=== PATIENT | female | born 1950 | race Caucasian/White ===

== ENCOUNTER → 2019-04-01 | Outpatient (CLI) | payer MEDICARE ==
[2019-04-01 11:26] LABS: Anisocytosis Slight; Basophils # (A) 0.1 k/uL (0-0.2); Basophils % (A) 1 %; Eosinophils # (A) 0.2 k/uL (0-0.7); Eosinophils % (A) 3 %; HCT 42.7 % (34.0-46.0); HGB 13.3 gm/dL (11.4-16.0); Hypochromasia Moderate; Lymphocytes # (A) 2.2 k/uL (1.0-4.8); Lymphocytes % (A) 27 %; MCH 25.9 pg (25.0-35.0); MCHC 31.1 g/dL (31.0-37.0); MCV 83.3 fL (80.0-100.0); Mean Platelet Volume 6.6; Monocytes # (A) 0.4 k/uL (0-1.0); Monocytes % (A) 5 %; Neutrophils % (A) 61 %; Platelet Count 242 k/uL (150-450); RBC 5.13 m/uL (3.80-5.40); RDW 16.7 % (11.5-15.5); WBC 8.2 k/uL (3.8-10.6)
[2019-04-01 16:46] LABS: African American GFR (CKD) 76.1 (60.0-200.0); Albumin 4.2 g/dL (3.80-4.90); Albumin/Globulin Ratio 1.83 (1.60-3.17); Anion Gap 8.4 mmol/L (4.00-12.00); BUN/Creat Ratio 25.56 Ratio (12.00-20.00); Calcium 9.6 mg/dL (8.7-10.3); Carbon Dioxide 26.6 mmol/L (21.6-31.8); Globulin 2.3 g/dL (1.6-3.3); Potassium 5.3 mmol/L (3.5-5.5); Total Bilirubin 0.4 mg/dL (0.3-1.2); Total Protein 6.5 g/dL (6.2-8.2)
== END | disposition home or self-care (01) ==
LOC: LABWHC1 10:17
PROVIDERS: ATTEND Thoracic Surgery (Cardiothoracic Vascular Surgery)
DX: E11.628 Type 2 diabetes mellitus with other skin complications (principal); L97.514 Non-pressure chronic ulcer of other part of right foot with necrosis of bone
CPT/HCPCS: 36415; 80053; 84134; 85025

== ENCOUNTER → 2019-04-06 | Outpatient (CLI) | payer MEDICARE ==
--- NOTE | 2019-04-09 11:55 | P.ARTDOP ---
Arterial Doppler LOWER EXTREMITY ARTERIAL DOPPLER: DATE OF SERVICE: 04/16/2019 Reason for study: Right great toe ulcer. Doppler waveforms: Multiphasic bilaterally throughout. Pulse volume recording: []. Pressure gradients: None. Ankle-brachial indices: Greater than 1 bilaterally. Toe pressures: 98 on the right, 102 on the left Impression: Normal study.
== END | disposition home or self-care (01) ==
LOC: RADUSWWP 12:55
PROVIDERS: ATTEND Thoracic Surgery (Cardiothoracic Vascular Surgery)
DX: E11.628 Type 2 diabetes mellitus with other skin complications (principal); L97.514 Non-pressure chronic ulcer of other part of right foot with necrosis of bone
CPT/HCPCS: 93923

== ENCOUNTER → 2019-07-07 | Outpatient (CLI) | payer MEDICARE ==
--- NOTE | 2019-07-07 13:07 | NM ---
EXAMINATION TYPE: NM bone 3 phase DATE OF EXAM: 07/07/2019 COMPARISON: NONE HISTORY: Right foot nonhealing ulcer Triple phase bone scintigraphy was performed following the injection of 24.1 mCi Tc 99m MDP. Immedia te images and 4.5 hours post injection images acquired. FINDINGS: There is fairly symmetric flow to the feet bilaterally. Increased soft tissue uptake is seen involvin g the distal margins of both feet. Delayed imaging does demonstrate increased uptake involving the di stal phalanx of the first digit. IMPRESSION: Correlate for cellulitis with osteomyelitis distal phalanx first digit.
== END ==
LOC: RADNMMAIN 07:16
PROVIDERS: ATTEND Family Medicine
DX: E11.621 Type 2 diabetes mellitus with foot ulcer (principal); L97.512 Non-pressure chronic ulcer of other part of right foot with fat layer exposed
CPT/HCPCS: 78315; A9503

== ENCOUNTER → 2020-03-28 | Outpatient (CLI) | payer MEDICARE ==
[2020-03-28 13:53] VITALS: BP 109/69; PULSE 69; RESP 16; TEMP 97.8
--- NOTE | 2020-03-28 15:02 | P.PAINCN ---
History of Present Illness - Reason for Consult Consult date: 03/28/20 - History of Present Illness This is 60 years old female with a chronic history of severe right foot pain, the pain started 1 year ago, patient had history of wound infection in her right foot and she was treated with antibiotics for long-term, and after the treatment she continues to have severe localized in the right big toe, and radiated to the right foot, the pain is constant continuous she is not able to use her right foot because of severe numbness and tingling and pain, currently she had very small open wound and the base of her right big toe, currently she does not have any swelling or discharge or erythema. Patient tried physical therapy TENS unit and multiple medication without any significant benefit, Past Medical History Past Medical History: Coronary Artery Disease (CAD), Heart Failure, Diabetes Mellitus, Hypertension, Osteoarthritis (OA) Additional Past Medical History / Comment(s): PHLEBITIS, NEUROPATHY, NUMBNESS/PARASTHESIAS, DROP-FOOT (RIGHT), RIGHT TOE WOUND/HX OF STAPH INFECTION History of Any Multi-Drug Resistant Organisms: None Reported Past Surgical History: Back Surgery, Cholecystectomy, Heart Catheterization With Stent, Hysterectomy, Orthopedic Surgery, Tonsillectomy Additional Past Surgical History / Comment(s): CATARACT, HEART STENT, BACK SURGERY X 5, RIGHT KNEE Past Anesthesia/Blood Transfusion Reactions: No Reported Reaction Date of Last Stent Placement:: 04-21-2014 Past Psychological History: Depression Smoking Status: Former smoker Medications and Allergies Home Medications Medication Instructions Recorded Confirmed Type Alendronate Sodium 70 mg PO DAILY 03/28/20 03/28/20 History Amitriptyline HCl 25 mg PO HS 03/28/20 03/28/20 History Aspirin [Adult Low Dose Aspirin EC] 81 mg PO DAILY 03/28/20 03/28/20 History Atorvastatin [Lipitor] 20 mg PO HS 03/28/20 03/28/20 History Cholecalciferol [Vitamin D3 (25 2,000 unit PO DAILY 03/28/20 03/28/20 History Mcg = 1000 Iu)] Doxycycline Hyclate 100 mg PO BID 03/28/20 03/28/20 History Enalapril Maleate [Vasotec] 20 mg PO DAILY 03/28/20 03/28/20 History Furosemide [Lasix] 20 mg PO DAILY 03/28/20 03/28/20 History Ibuprofen 800 mg PO Q8H 03/28/20 03/28/20 History Loratadine 10 mg PO DAILY 03/28/20 03/28/20 History Metoprolol Succinate (ER) [Toprol 100 mg PO DAILY 03/28/20 03/28/20 History XL] Multivitamin/Iron/Folic Acid 1 each PO DAILY 03/28/20 03/28/20 History [Centrum Women Tablet] Naproxen 500 mg PO ONCE 03/28/20 03/28/20 History Omeprazole [PriLOSEC] 40 mg PO DAILY 03/28/20 03/28/20 History Pregabalin [Lyrica] 200 mg PO BID 03/28/20 03/28/20 History Temazepam [Restoril] 15 mg PO HS PRN 03/28/20 03/28/20 History Zafirlukast 20 mg PO BID 03/28/20 03/28/20 History buPROPion HCL [buPROPion HCL SR] 150 mg PO BID 03/28/20 03/28/20 History glipiZIDE [Glucotrol] 10 mg PO DAILY 03/28/20 03/28/20 History hydrALAZINE HCL [Apresoline] 50 mg PO BID 03/28/20 03/28/20 History Allergies Allergy/AdvReac Type Severity Reaction Status Date / Time Penicillins Allergy Anaphylaxis Verified 03/28/20 13:27 Sulfa (Sulfonamide Allergy Anaphylaxis Verified 03/28/20 13:27 Antibiotics) Physical Exam Vitals: Vital Signs Temp Pulse Resp BP Pulse Ox 03/28/20 13:31 97.8 F 69 16 109/69 96 Intake and Output 03/27/20 03/28/20 03/28/20 22:59 06:59 14:59 Other: Weight 113.398 kg Physical Examinations : -Constitutiona : Cooperative , not in acute distress . -HEENT : nech : supple , no Lymphadenopathy , normal thyroid size . : eyes : no ptosis , no icterus, no photophobia . - neurologic : Cranial nerve II to XII intact , no focal neurological deffecit . -psychatric : alert , oriented X 3 , appropriate affect , intact judgment and insight . -Lymphatic : no Lymphadenopathy . - musculoskeltal : . Lumber spine moter stegnth lower extremities ,thigh and legs 5/5 Right side , 5/5 Left side Right foot=+ allodynia at the dorsum of the right foot, no swelling There is less than a half an inch from the wound at the right big Toe ( covered with Band-Aid ) Positive dysesthesia of the dorsum of the right foot Assessment and Plan Plan: Assessment and plan=1-complex regional pain syndrome type I right lower extremity Patient could benefit from right side lumbar sympathetic block under fluoroscopy guidance Time with Patient: Greater than 30 PQRS Measure Charge Sheet Measure #130: Documentation of Current Meds in Medical Chart: Patient's medications documented in chart Measure #226: Tobacco Use: Screen & Cessation Intervention: Pt not a tobacco user Measure #111: Pneumonia Vaccination: Pneumococcal vaccine administered or previously received Measure #47: Advance Care Plan: Advance care planning discussed & documented, pt chose/unable to give Measure #412: Opioid Treatment Agreement: No documentation of signed opioid treatment agreement Measure #408: Opioid Therapy Follow-up Evaluation: Patient had NO f/u eval minimum every 3 months during opioid therapy Measure #317: Preventitive Care & Scrn High Bld Press & F/U: Normal blood pressure, f/u not required Measure #128: Body Mass Index (BMI) Screening & Follow-up: BMI documented ABOVE normal parameters - f/u documented Measure #131: Pain Assessment & Follow-up: Pain positive & plan documented, Follow-up scheduled Measure #431: Unhealthy Alcohol Use Preventative Care & Scrn: Patient not identified as an unhealthy alcohol user PQRS Narrative: Blood Pressure 109/69 Pain Intensity [Right Toe] 7 Hx Alcohol Use (MH) Yes: SOCIAL Home Medications: Ambulatory Orders Alendronate Sodium 70 mg PO DAILY 03/28/20 Amitriptyline HCl 25 mg PO HS 03/28/20 Aspirin [Adult Low Dose Aspirin EC] 81 mg PO DAILY 03/28/20 Atorvastatin [Lipitor] 20 mg PO HS 03/28/20 Cholecalciferol [Vitamin D3 (25 Mcg = 1000 Iu)] 2,000 unit PO DAILY 03/28/20 Doxycycline Hyclate 100 mg PO BID 03/28/20 Enalapril Maleate [Vasotec] 20 mg PO DAILY 03/28/20 Furosemide [Lasix] 20 mg PO DAILY 03/28/20 Ibuprofen 800 mg PO Q8H 03/28/20 Loratadine 10 mg PO DAILY 03/28/20 Metoprolol Succinate (ER) [Toprol XL] 100 mg PO DAILY 03/28/20 Multivitamin/Iron/Folic Acid [Centrum Women Tablet] 1 each PO DAILY 03/28/20 Naproxen 500 mg PO ONCE 03/28/20 Omeprazole [PriLOSEC] 40 mg PO DAILY 03/28/20 Pregabalin [Lyrica] 200 mg PO BID 03/28/20 Temazepam [Restoril] 15 mg PO HS PRN 03/28/20 Zafirlukast 20 mg PO BID 03/28/20 buPROPion HCL [buPROPion HCL SR] 150 mg PO BID 03/28/20 glipiZIDE [Glucotrol] 10 mg PO DAILY 03/28/20 hydrALAZINE HCL [Apresoline] 50 mg PO BID 03/28/20
== END | disposition home or self-care (01) ==
LOC: PNWHC3 13:15
PROVIDERS: ATTEND Specialist
DX: G90.521 Complex regional pain syndrome I of right lower limb (principal); Z79.82 Long term (current) use of aspirin; Z79.1 Long term (current) use of non-steroidal anti-inflammatories (NSAID); Z79.84 Long term (current) use of oral hypoglycemic drugs; Z79.899 Other long term (current) drug therapy; Z88.0 Allergy status to penicillin; Z88.2 Allergy status to sulfonamides
CPT/HCPCS: 99211

== ENCOUNTER 2020-04-19 09:41 | Day surgery (SDC) | payer MEDICARE ==
[2020-04-18 09:21] VITALS: BMI 50.1
[2020-04-19 10:09] VITALS: TEMP 97
[2020-04-19] MEDS ORDERED: LACTATED RINGERS 1,000 ML IV ONE (10:13)
[2020-04-19] MEDS ORDERED: LIDOCAINE 1% (10MG/ML) FOR IV START INTRADERMA ONE (10:13)
[2020-04-19 10:14] LABS: Glucose,Whole Blood 105 mg/dL (75-99)
[2020-04-19] MEDS ORDERED: DEXAMETHASONE SOD PHOSPHATE 10 MG/ML 1 ML VIAL ONE (10:14)
[2020-04-19] MEDS ORDERED: ROPIVACAINE 5MG/ML 20ML VIAL ONE (10:14)
[2020-04-19] MEDS ORDERED: LACTATED RINGERS 1,000 ML IV SCH (10:14)
[2020-04-19] MEDS ORDERED: IOPAMIDOL M200 10 ML VIAL ONE (10:14)
[2020-04-19] MEDS ORDERED: MIDAZOLAM 2 MG/2 ML VIAL ONE (10:14)
[2020-04-19] MEDS ORDERED: fentaNYL (PF) 50 MCG/ML 2 ML AMP ONE (10:14)
[2020-04-19] MEDS ORDERED: LIDOCAINE 1% INJ 10MG/ML (20 ML MDV) ONE (10:14)
--- NOTE | 2020-04-19 10:47 | P.PCN ---
Description of Procedure: PROCEDURE NOTE: Lumbar Sympathetic Block PROCEDURE DATE: 04/19/20 ATTENDING PHYSICIAN: Nino Kevin MD PREOPERATIVE DIAGNOSIS: CRPS right foot POSTOPERATIVE DIAGNOSIS: same PROCEDURE PERFORMED: Right Lumbar Sympathetic Block, at the Level of L3, With Fluoroscopic Guidance ESTIMATED BLOOD LOSS: None FLUIDS: 250mL, 0.9% Sodium Chloride FLUOROSCOPY WAS USED. TOTAL SEDATION TIME: minutes. INDICATIONS FOR PROCEDURE: Patient symptoms consistent with a clinical picture consistent with complex regional pain syndrome of the right lower extremity PROCEDURE AND FINDINGS: Patient was greeted in the pre procedure holding area. The risks, benefits and alternatives to the procedure were again reviewed with the patient and written informed consent was placed in the chart. The patient was confirmed to be NPO, and to have an accompanying adult truck driver flatbed. Prior to the procedure a time out was completed, verifying correct patient, procedure, site, positioning, and implants and/or special equipment. Patient was taken to the procedure room and positioned prone on the fluoroscopy table. Routine monitors were applied including EKG leads, blood pressure cuff, and pulse oximetry. Then an AP view barrel filler film was taken to identify the L3 vertebral body. The skin was prepped with chlorhexidine and draped in the usual sterile fashion. The skin and subcutaneous tissue overlying the target at the L3 level were anesthetized using a 25-gauge 1.5-inch needle with 1% preservative- free lidocaine for a total volume of 3mL. Ipsilateral oblique fluoroscopic view was utiilized to bring the right L3 transverse process into the plane of the right L3. Then a 22-gauge 5-inch Quincke spinal needle was advanced obliquely under fluoroscopic guidance in this ipsilateral oblique view to the right anterolateral margin of the L3 vertebral body A lateral fluoroscopic view was obtained and the needle position was confirmed to be outside the foramen and near the anterior surface of the [id number] body. After negative aspiration,1 mls of iohexol 240 mg/ml contrast was injected under live AP and lateral fluoroscopic views; no vascular run off was identified and the contrast spread was adequate. At this point, after negative aspiration, a 15mL total volume of injectate, consisting of 14mL of 0.5% Ropivacaine and 1mL of 10 mg/mL dexamethasone was injected, in 5mL increments at 2 minute intervals between increments, to observe for complications of intravascular injection. The needle was then flushed with 1 ml of contrst, restyletted and removed. The needle was restyletted and removed. Needle sites were cleaned and dressed appropriately. Patient was taken to the recovery room where they were monitored for a brief period of time. Patient tolerated the procedure well and were discharged home in stable condition with post procedural instructions.
[2020-04-19 11:15] VITALS: BP 107/65; PULSE 62; RESP 16
[2020-04-19] MEDS ORDERED: IV FLUID CONTINUATION 1,000 ML IV ONE (11:18)
--- NOTE | 2020-04-19 16:32 | FL ---
Fluoroscopy INDICATION: Pain FINDINGS: Fluoroscopy time: 1.11 minutes Images obtained: 1. IMPRESSIONS: 1. Documentation of fluoroscopy.
== END 2020-04-19 11:44 | disposition home or self-care (01) ==
LOC: ORPAIN 09:41
PROVIDERS: ATTEND Anesthesiology
DX: G90.521 Complex regional pain syndrome I of right lower limb (principal); E11.9 Type 2 diabetes mellitus without complications; S91.101A Unspecified open wound of right great toe without damage to nail, initial encounter; Z88.0 Allergy status to penicillin; Z88.2 Allergy status to sulfonamides; X58.XXXA Exposure to other specified factors, initial encounter
CPT/HCPCS: 77003; 64520; J2250; J1100; J2001; J3010; Q9966; J2795; 99152; 99153

== ENCOUNTER → 2020-05-31 | Day surgery (SDC) | payer MEDICARE ==
[2020-05-30 11:37] VITALS: BMI 48.5
[~2020-05-31] MED LIST: DEXAMETHASONE SOD PHOSPHATE 10 MG/ML 1 ML VIAL ONE; IOPAMIDOL M200 10 ML VIAL ONE; IV FLUID CONTINUATION 1,000 ML IV ONE; LACTATED RINGERS 1,000 ML IV ONE; LACTATED RINGERS 1,000 ML IV SCH; LIDOCAINE 1% INJ 10MG/ML (20 ML MDV) ONE; MIDAZOLAM 2 MG/2 ML VIAL ONE; ROPIVACAINE 5MG/ML 20ML VIAL ONE; fentaNYL (PF) 50 MCG/ML 2 ML AMP ONE
[2020-05-31 11:54] VITALS: TEMP 97.8
[2020-05-31 12:04] LABS: Glucose,Whole Blood 81 mg/dL (75-99)
--- NOTE | 2020-05-31 13:26 | P.PCN ---
Date of Procedure: 05/31/20 Surgeon: Mike Vital Pathology: none sent Condition: stable Disposition: PACU Description of Procedure: PREOPERATIVE DIAGNOSIS: CRPS right foot POSTOPERATIVE DIAGNOSIS: same PROCEDURE PERFORMED: Right Lumbar Sympathetic Block, at the Level of L3, With Fluoroscopic Guidance ESTIMATED BLOOD LOSS: None FLUIDS: 250mL, 0.9% Sodium Chloride FLUOROSCOPY WAS USED. TOTAL SEDATION TIME: minutes. INDICATIONS FOR PROCEDURE: Patient symptoms consistent with a clinical picture consistent with complex regional pain syndrome of the right lower extremity PROCEDURE AND FINDINGS: Patient was greeted in the pre procedure holding area. The risks, benefits and alternatives to the procedure were again reviewed with the patient and written informed consent was placed in the chart. The patient was confirmed to be NPO, and to have an accompanying adult line haul driver. Prior to the procedure a time out was completed, verifying correct patient, procedure, site, positioning, and implants and/or special equipment. Patient was taken to the procedure room and positioned prone on the fluoroscopy table. Routine monitors were applied including EKG leads, blood pressure cuff, and pulse oximetry. Then an AP view tea room manager film was taken to identify the L3 vertebral body. The skin was prepped with chlorhexidine and draped in the usual sterile fashion. The skin and subcutaneous tissue overlying the target at the L3 level were anesthetized using a 25-gauge 1.5-inch needle with 1% preservative- free lidocaine for a total volume of 3mL. Ipsilateral oblique fluoroscopic view was utiilized to bring the right L3 trans verse process into the plane of the right L3. Then a 22-gauge 7-inch Quincke spinal needle was advanced obliquely under fluoroscopic guidance in this ipsilateral oblique view to the right anterolateral margin of the L3 vertebral body A lateral fluoroscopic view was obtained and the needle position was confirmed to be outside the foramen and near the anterior surface of the [id number] body. After negative aspiration,1 mls of iohexol 240 mg/ml contrast was injected under live AP and lateral fluoroscopic views; no vascular run off was identified and the contrast spread was adequate. I injected 5 MLS of lidocaine 1% with epinephrine as a test dose to rule out intravascular or intrathecal injection. The patient dose was negative. At this point, after negative aspiration, a 15mL total volume of injectate, consisting of 14mL of 0.5% Ropivacaine and 1mL of 10 mg/mL dexamethasone was injected, in 5mL increments at 2 minute intervals between increments, to observe for complications of intravascular injection. The needle was then flushed with 1 ml of contrst, restyletted and removed. The needle was restyletted and removed. Needle sites were cleaned and dressed appropriately. Patient was taken to the recovery room where they were monitored for a brief period of time. Patient tolerated the procedure well and were discharged home in stable condition with post procedural instructions.
[2020-05-31 13:34] VITALS: RESP 16
[2020-05-31 14:07] VITALS: BP 133/88; PULSE 68
--- NOTE | 2020-05-31 14:29 | FL ---
Fluoroscopy HISTORY: Pain 44 seconds fluoroscopy time supplied to the referring clinician. 2 intraoperative C-arm images docum ent the procedure. See dictated report from anesthesia.
== END ==
LOC: ORPAIN 11:38
PROVIDERS: ATTEND Anesthesiology
DX: G57.71 Causalgia of right lower limb (principal); Z88.0 Allergy status to penicillin; Z88.2 Allergy status to sulfonamides; Z78.0 Asymptomatic menopausal state; E11.9 Type 2 diabetes mellitus without complications
CPT/HCPCS: 64520; J2250; J1100; J2001; J3010; Q9966; J2795; 99152

== ENCOUNTER → 2020-06-29 | Outpatient (CLI) | payer MEDICARE ==
[2020-06-29 09:51] VITALS: BP 110/61; PULSE 64; RESP 20; TEMP 98.4
--- NOTE | 2020-06-29 10:06 | P.PAINPG ---
Subjective Progress Note Date: 06/29/20 - History of Present Illness This is 60 years old female with a chronic history of severe right foot pain, the pain started 1 year ago, patient had history of wound infection in her right foot and she was treated with antibiotics for long-term, and after the treatment she continues to have severe localized in the right big toe, and radiated to the right foot, the pain is constant continuous she is not able to use her right foot because of severe numbness and tingling and pain, currently she had very small open wound and the base of her right big toe, currently she does not have any swelling or discharge or erythema. Patient tried physical therapy TENS unit and multiple medication without any significant benefit, is now status post 2 lumbar right sympathetic blocks. She is currently taking amitriptyline 25 mg QHS, Lyrica 200 mg BID, tramadol 50 mg TID. Patient notes that she had good relief from a recent lumbar synthetic blocks. Her pain is currently 4-10 when it's normally in 8 out of 10. She is interested in discussing spinal cord stimulator. Review of systems is negative for chest pain, shortness of breath, new onset weakness, numbness/tingling, abdominal pain, malaise, fever, night sweats, chills, homicidal or suicidal ideation, or bowel or bladder incontinence. Physical Exam Physical Examinations : -Constitutiona : Cooperative , not in acute distress . -HEENT : nech : supple , no Lymphadenopathy , normal thyroid size . : eyes : no ptosis , no icterus, no photophobia . - neurologic : Cranial nerve II to XII intact , no focal neurological deffecit . -psychatric : alert , oriented X 3 , appropriate affect , intact judgment and insight . -Lymphatic : no Lymphadenopathy . - musculoskeltal : . Lumber spine moter stegnth lower extremities ,thigh and legs 5/5 Right side , 5/5 Left side Right foot=+ allodynia at the dorsum of the right foot, no swelling There is less than a half an inch from the wound at the right big Toe ( covered with Band-Aid ) Positive dysesthesia of the dorsum of the right foot Assessment and Plan Plan: Assessment and plan=1-complex regional pain syndrome type I right lower extremity - Had a long discussion with the patient. The patient would like to continue the lumbar synthetic block 3-4 times a year as needed. When I told her about the spinal cord stimulator process she said at this time she would prefer not to have any permanent implants placed into her back. However she said that if these lumbar sympathetic blocks stop working in the future we can consider that and she would like to be evaluated for that. I gave Her information pamphlet today for [facility] - I'll tentatively schedule her for lumbar synthetic block in 3 months. I did tell her if she feels that she can push off further that she should given that we do not want to give her significant steroid load in the setting of someone has a chronic nonhealing wound. My suggestion would be to use clonidine 100 micg rather than steroid in future synthetic blocks to avoid steroid load. Time with Patient: Greater than 30 PQRS Measure Charge Sheet Measure #130: Documentation of Current Meds in Medical Chart: Patient's medications documented in chart Measure #226: Tobacco Use: Screen & Cessation Intervention: Pt not a tobacco user Measure #111: Pneumonia Vaccination: Pneumococcal vaccine administered or previously received Measure #47: Advance Care Plan: Advance care planning discussed & documented, pt chose/unable to give Measure #412: Opioid Treatment Agreement: No documentation of signed opioid treatment agreement Measure #408: Opioid Therapy Follow-up Evaluation: Patient had NO f/u eval minimum every 3 months during opioid therapy Measure #317: Preventitive Care & Scrn High Bld Press & F/U: Normal blood pressure, f/u not required Measure #128: Body Mass Index (BMI) Screening & Follow-up: BMI documented ABOVE normal parameters - f/u documented Measure #131: Pain Assessment & Follow-up: Pain positive & plan documented, Follow-up scheduled Measure #431: Unhealthy Alcohol Use Preventative Care & Scrn: Patient not identified as an unhealthy alcohol user PQRS Narrative: Blood Pressure 109/69 Pain Intensity [Right Toe] 7 Hx Alcohol Use (MH) Yes: SOCIAL PQRS Measure Charge Sheet PQRS Narrative: Hx Alcohol Use (MH) Yes: SOCIAL Home Medications: Ambulatory Orders Alendronate Sodium 70 mg PO Q7D 03/28/20 Amitriptyline HCl 50 mg PO BID 03/28/20 Aspirin [Adult Low Dose Aspirin EC] 81 mg PO DAILY 03/28/20 Atorvastatin [Lipitor] 20 mg PO HS 03/28/20 Cholecalciferol [Vitamin D3 (25 Mcg = 1000 Iu)] 2,000 unit PO DAILY 03/28/20 Enalapril Maleate [Vasotec] 20 mg PO DAILY 03/28/20 Furosemide [Lasix] 40 mg PO DAILY 03/28/20 Loratadine 10 mg PO DAILY 03/28/20 Metoprolol Succinate (ER) [Toprol XL] 100 mg PO DAILY 03/28/20 Multivitamin/Iron/Folic Acid [Centrum Women Tablet] 1 each PO DAILY 03/28/20 Naproxen 500 mg PO TID PRN 03/28/20 Omeprazole [PriLOSEC] 40 mg PO DAILY 03/28/20 Pregabalin [Lyrica] 200 mg PO BID 03/28/20 Zafirlukast 20 mg PO BID 03/28/20 buPROPion HCL [buPROPion HCL SR] 150 mg PO BID 03/28/20 glipiZIDE [Glucotrol] 2.5 mg PO DAILY 03/28/20 hydrALAZINE HCL [Apresoline] 75 mg PO BID 03/28/20 Diclofenac Sodium [Voltaren] 75 mg PO BID 05/30/20 Isosorbide Mononitrate [Isosorbide Mononitrate ER] 30 mg PO DAILY 05/30/20 traMADol HCL [Ultram] 50 mg PO TID PRN 05/30/20 Controlled Substance Measures - Controlled Substance Measures Is patient prescribed a controlled substance at discharge?: No
== END | disposition home or self-care (01) ==
LOC: PNWHC3 09:28
PROVIDERS: ATTEND Anesthesiology
DX: G90.521 Complex regional pain syndrome I of right lower limb (principal); Z79.82 Long term (current) use of aspirin; Z79.83 Long term (current) use of bisphosphonates; Z79.899 Other long term (current) drug therapy; Z79.1 Long term (current) use of non-steroidal anti-inflammatories (NSAID)
CPT/HCPCS: 99211

== ENCOUNTER → 2020-07-12 | Outpatient (CLI) | payer MEDICARE ==
[2020-07-12 12:32] LABS: Basophils # (A) 0.1 k/uL (0-0.2); Basophils % (A) 1 %; Eosinophils # (A) 0.3 k/uL (0-0.7); Eosinophils % (A) 3 %; HCT 46.4 % (34.0-46.0); Hypochromasia Marked; Lymphocytes # (A) 1.9 k/uL (1.0-4.8); Lymphocytes % (A) 17 %; MCH 26.6 pg (25.0-35.0); MCHC 30.1 g/dL (31.0-37.0); MCV 88.2 fL (80.0-100.0); Mean Platelet Volume 8.2; Monocytes # (A) 0.6 k/uL (0-1.0); Monocytes % (A) 6 %; Neutrophils # (A) 7.7 k/uL (1.3-7.7); Neutrophils % (A) 71 %; Platelet Count 243 k/uL (150-450); RBC 5.26 m/uL (3.80-5.40); RDW 15.9 % (11.5-15.5); WBC 10.7 k/uL (3.8-10.6)
[2020-07-12 14:25] LABS: Erythrocyte Sedimentation Rate 19 mm/hr (0-20)
[2020-07-12 19:57] LABS: African American GFR (CKD) 75.1 (60.0-200.0); Albumin 4.2 g/dL (3.80-4.90); Albumin/Globulin Ratio 1.62 (1.60-3.17); Anion Gap 7.8 mmol/L (4.00-12.00); BUN/Creat Ratio 23.33 Ratio (12.00-20.00); Calcium 9.8 mg/dL (8.7-10.3); Carbon Dioxide 30.2 mmol/L (21.6-31.8); Globulin 2.6 g/dL (1.6-3.3); Non-African American GFR(CKD) 64.8 (60.0-200.0); Total Bilirubin 0.2 mg/dL (0.3-1.2); Total Protein 6.8 g/dL (6.2-8.2)
[2020-07-12 19:58] LABS: C Reactive Protein 2.1 mg/dL (0.0-0.8)
[2020-07-12 22:15] LABS: Hemoglobin A1C 6.9 % (4.0-6.0)
== END | disposition home or self-care (01) ==
LOC: LABWHC1 10:33
PROVIDERS: ATTEND Nurse Practitioner Family
DX: E11.621 Type 2 diabetes mellitus with foot ulcer (principal); L97.512 Non-pressure chronic ulcer of other part of right foot with fat layer exposed; M86.68 Other chronic osteomyelitis, other site
CPT/HCPCS: 36415; 80053; 83036; 84134; 85025; 85652; 86140

== ENCOUNTER → 2020-09-01 | Outpatient (CLI) | payer MEDICARE ==
--- NOTE | 2020-09-01 14:25 | FL ---
EXAMINATION TYPE: FL barium swallow DATE OF EXAM: 09/01/2020 COMPARISON: None HISTORY: Epigastric pain fluid sticking midsternal area TECHNIQUE: Esophagram is evaluated utilizing double air-contrast technique. FINDINGS: Esophagus dilates to normal caliber has normal contour to the gastroesophageal junction. Ga stroesophageal junction opens to normal caliber. No intraluminal or extramural defects are evident. No Zenker's diverticulum is evident. No mid esophageal stenosis is evident. No stenosis within the es ophagus is evident. There is complete stripping of esophageal bolus the horizontal drinking position. Note is made of some transient prominence of the cricopharyngeus muscle during swallowing. Example im age 47. IMPRESSION: 1. Normal esophagus.
== END | disposition home or self-care (01) ==
LOC: RADUSWWP 08:59
PROVIDERS: ATTEND Internal Medicine Gastroenterology
DX: R13.19 Other dysphagia (principal); R10.13 Epigastric pain
CPT/HCPCS: 74220

== ENCOUNTER 2020-09-27 07:18 | Day surgery (SDC) | payer MEDICARE ==
[2020-09-21 15:39] VITALS: BMI 44.8
[~2020-09-27 07:18] MED LIST changes: -DEXAMETHASONE SOD PHOSPHATE 10 MG/ML 1 ML VIAL ONE; -IOPAMIDOL M200 10 ML VIAL ONE; -IV FLUID CONTINUATION 1,000 ML IV ONE; -LACTATED RINGERS 1,000 ML IV ONE; -LIDOCAINE 1% INJ 10MG/ML (20 ML MDV) ONE; -MIDAZOLAM 2 MG/2 ML VIAL ONE; -ROPIVACAINE 5MG/ML 20ML VIAL ONE; -fentaNYL (PF) 50 MCG/ML 2 ML AMP ONE
[2020-09-27] MEDS ORDERED: LIDOCAINE 1% (10MG/ML) FOR IV START INTRADERMA ONE (08:00)
[2020-09-27] MEDS ORDERED: fentaNYL (PF) 50 MCG/ML 2 ML AMP ONE (08:05)
[2020-09-27] MEDS ORDERED: IOPAMIDOL M200 10 ML VIAL ONE (08:05)
[2020-09-27] MEDS ORDERED: MIDAZOLAM 2 MG/2 ML VIAL ONE (08:05)
[2020-09-27] MEDS ORDERED: ROPIVACAINE 5MG/ML 20ML VIAL ONE (08:05)
[2020-09-27] MEDS ORDERED: methylPREDNISolone ACETATE 40 MG/ML 1 ML VIAL ONE (08:05)
[2020-09-27 08:06] VITALS: TEMP 97
[2020-09-27 08:09] LABS: Glucose,Whole Blood 97 mg/dL (75-99)
--- NOTE | 2020-09-27 08:35 | P.PCN ---
Date of Procedure: 09/27/20 Procedure(s) Performed: PREOPERATIVE DIAGNOSIS: complex regional pain syndrome.Type I , Right lower Ex tremities. POSTOPERATIVE DIAGNOSIS: complex regional pain syndrome.Type I , Right lower Extremities. . PROCEDURE: Right side lumbar sympathetic block with fluoroscopic guidence (fluoroscopy images available in radiology department ) ANESTHESIA: moderate sedation with Versed 1 mg ,and fentanyl.100 Micrograms,and Local with 1% lidocaine 5 ml ; EBL: None. PROCEDURE INDICATION: The patient with RSD which has responded to lumbar sympathetic block. The previous one lasted one month. PROCEDURE DESCRIPTION: The patient was seen and identified in the preoperative area. Risks, benefits, complications, and alternatives were discussed with the patient. The patient agreed to proceed with the procedure and signed the consent. IV was started, and vital signs were stable. Patient was taken to the OR and time out was completed. The patient was placed in the prone position on procedure table and a pillow was placed under the abdomen to reduce lumbar lordosis. The lumbosacral area was prepped and draped in the usual sterile fashion. Critical pause was taken. Vital signs were closely monitored during the procedure. Fluoroscopy was used to identify the L3 vertebra and target points were marked.5 cc Lidocaine 1% was used with a 25 guage needle to achieve adequate local anesthesia of the skin and subcutaneous tissue. then 22-guage,7-inch spinal needles were inserted through the skin at the lateral border of the left side of right L3 vertebral body and then advanced under fluoroscopic guidance in oblique, anterior, and lateral views. The needles were advanced to the ant ero-lateral border of the vertebra from the Right side and 3cc of Isoview 200 was injected to confirm needle position. After satisfactory positioning of the needles, and negative aspiration of blood, CSF 10 cc of 0.5 % preservative free Ropivacaine with 40 mg Dep-Medrol was injected with intermittent aspiration. [place] were withdrawn intact. COMPLICATIONS: None. DISPOSITION / PLANS: The patient was placed in a supine position and transferred to the recovery area in a stable condition for observation and was discharged from the recovery room after meeting discharge criteria. Home discharge instructions given to the patient by the staff. The patient was reexamined prior to discharge. The patient will schedule a follow up in the clinic
[2020-09-27 08:41] VITALS: RESP 20
[2020-09-27 08:56] VITALS: BP 136/81; PULSE 67
[2020-09-27] MEDS ORDERED: IV FLUID CONTINUATION 1,000 ML IV ONE (08:56)
--- NOTE | 2020-09-27 09:44 | FL ---
Fluoroscopy INDICATION: Pain FINDINGS: Fluoroscopy time: 44 seconds. Images obtained: 2. IMPRESSIONS: 1. Documentation of fluoroscopy.
== END 2020-09-27 09:12 | disposition home or self-care (01) ==
LOC: ORPAIN 07:18
PROVIDERS: ATTEND Specialist
DX: G90.521 Complex regional pain syndrome I of right lower limb (principal); Z88.0 Allergy status to penicillin; Z91.030 Bee allergy status
CPT/HCPCS: 64520; J2250; J1030; J3010; Q9966; J2795; 99152

== ENCOUNTER → 2020-10-12 | Outpatient (CLI) | payer MEDICARE ==
[2020-10-12 13:17] VITALS: BP 135/80; PULSE 61; RESP 16; TEMP 97.4
--- NOTE | 2020-10-12 13:29 | P.PN ---
Subjective Progress Note Date: 10/12/20 This is follow up visit for 70 years old female with a chronic history of severe right foot pain, the pain started 1 year ago, patient had history of wound infection in her right foot and she was treated with antibiotics for long-term, and after the treatment she continues to have severe localized in the right big toe, and radiated to the right foot, the pain is constant continuous she is not able to use her right foot because of severe numbness and tingling and pain, currently she had very small open wound and the base of her right big toe, currently she does not have any swelling or discharge or erythema. Patient tried physical therapy TENS unit and multiple medication without any significant benefit, is now status post 2 lumbar right sympathetic blocks. She is currently taking amitriptyline 25 mg QHS, Lyrica 200 mg BID, tramadol 50 mg TID. Patient had excellent pain relief after lumbar synthetic blocks x3 , she had minimal pain, she is very satisfied with the result of the treatment Objective - Vital Signs Vital signs: Vital Signs Temp 97.4 F L 10/12/20 13:14 Pulse 61 10/12/20 13:14 Resp 16 10/12/20 13:14 BP 135/80 10/12/20 13:14 Pulse Ox 84 L 10/12/20 13:14 Intake & Output 10/11/20 10/12/20 10/12/20 18:59 06:59 18:59 Weight 78.018 kg - Exam -Constitutiona : Cooperative , not in acute distress . -HEENT : nech : supple , no Lymphadenopathy , normal thyroid size . : eyes : no ptosis , no icterus, no photophobia . - neurologic : Cranial nerve II to XII intact , no focal neurological deffecit . -psychatric : alert , oriented X 3 , appropriate affect , intact judgment and insight . -Lymphatic : no Lymphadenopathy . - musculoskeltal : . Lumber spine moter stegnth lower extremities ,thigh and legs 5/5 Right side , 5/5 Left side Right foot=+ allodynia at the dorsum of the right foot, no swelling There is less than a half an inch from the wound at the right big Toe ( covered with Band-Aid ) Positive dysesthesia of the dorsum of the right foot Assessment and Plan Plan: Assessment and plan=1-complex regional pain syndrome type I right lower extremity Pain Improve significantly after Right lumbar sympathetic block x3 . She will follow up in the pain clinic when necessary Time with Patient: Greater than 30 PQRS Measure Charge Sheet Measure #130: Documentation of Current Meds in Medical Chart: Patient's medications documented in chart Measure #226: Tobacco Use: Screen & Cessation Intervention: Pt not a tobacco user Measure #111: Pneumonia Vaccination: Pneumococcal vaccine administered or previously received Measure #47: Advance Care Plan: Advance care planning discussed & documented, pt chose/unable to give Measure #412: Opioid Treatment Agreement: No documentation of signed opioid treatment agreement Measure #408: Opioid Therapy Follow-up Evaluation: Patient had NO f/u eval minimum every 3 months during opioid therapy Measure #317: Preventitive Care & Scrn High Bld Press & F/U: Normal blood pressure, f/u not required Measure #128: Body Mass Index (BMI) Screening & Follow-up: BMI documented ABOVE normal parameters - f/u documented Measure #131: Pain Assessment & Follow-up: Pain positive & plan documented, Follow-up scheduled Measure #431: Unhealthy Alcohol Use Preventative Care & Scrn: Patient not identified as an unhealthy alcohol user PQRS Narrative: Time with Patient: Less than 30
== END ==
LOC: PNWHC3 12:54
PROVIDERS: ATTEND Specialist
DX: G90.521 Complex regional pain syndrome I of right lower limb (principal)
CPT/HCPCS: 99211

== ENCOUNTER → 2020-10-17 | Outpatient (CLI) | payer MEDICARE ==
--- NOTE | 2020-10-17 09:35 | US ---
EXAMINATION TYPE: US thyroid st tissue head/neck DATE OF EXAM: 10/17/2020 COMPARISON: NONE CLINICAL HISTORY: E04.1 Thyroid Nodule. follow up thyroid nodules. No previous here at this facility . Suboptimal visualization due to patient neck length and thyroid position GLAND SIZE: Right Lobe: 5.4 x 2.6 x 3.0 cm Overall Parenchyma: heterogenous Left Lobe: 4.2 x 2.7 x 2.9 cm Overall Parenchyma: heterogeneous Isthmus Thickness: 0.7 cm NODULES- Multiple nodules seen in bilateral lobes, largest measured RIGHT: # of nodules measured on right: 3 1. 3.0 x 2.7 x 2.7 cm, lower mid, solid or almost completely solid, nodule, which is wide as tall, with smooth margins, without echogenic foci. Prior size: No prior here 2. 1.5 X 1.3 x 1.2 cm, upper medial, solid or almost completely solid, hypoechoic nodule, which is wider than tall, with smooth margins, without echogenic foci. Prior size: No prior here 3. 0.9 X 0.7 x 0.5 cm, upper medial, solid or almost completely solid, hypoechoic nodule, which is wider than tall, with smooth margins, without echogenic foci. Prior size: No prior here LEFT: # of nodules measured on left: 3 1. 2.9 X 2.0 x 1.9 cm, upper mid, mixed cystic and solid, hypoechoic nodule, which is wider than ta ll, with smooth margins, without echogenic foci. Prior size: No prior here 2. 1.4 X 1.2 x 1.0 cm, mid medial, solid or almost completely solid, hypoechoic nodule, which is w ider than tall, with smooth margins, without echogenic foci. Prior size: No prior here 3. 1.6 X 1.4 x 1.4 cm, lower , mixed cystic and solid, hypoechoic nodule, which is wide as tall, wi th smooth margins, without echogenic foci. Prior size: No prior here ISTHMUS: # of nodules measured in the isthmus: 0 Bilateral neck scanned, no evidence of lymphadenopathy. IMPRESSION: Thyroidomegaly with bilateral nonspecific nodules as discussed above.
== END | disposition home or self-care (01) ==
LOC: RADUSWWP 08:55
PROVIDERS: ATTEND Otolaryngology
DX: E01.0 Iodine-deficiency related diffuse (endemic) goiter (principal); Z88.0 Allergy status to penicillin; Z88.2 Allergy status to sulfonamides
CPT/HCPCS: 76536

== ENCOUNTER → 2021-05-19 | Outpatient (CLI) | payer MEDICARE ==
--- NOTE | 2021-05-19 15:17 | US ---
EXAMINATION TYPE: US thyroid st tissue head/neck DATE OF EXAM: 05/19/2021 COMPARISON: US CLINICAL HISTORY: E04.1 THYROID NODULE. Follow up nodules; prior thyroid biopsies attempted GLAND SIZE: Right Lobe: 5.3 x 2.3 x 3.2 cm Overall Parenchyma: heterogenous Left Lobe: 4.3 x 3.0 x 2.2 cm Overall Parenchyma: heterogeneous Isthmus Thickness: 0.8 cm NODULES RIGHT: # of nodules measured on right: 3 largest of multiple 1. 2.9 X 2.0 x 2.1 cm, lower pole, solid or almost completely solid, hypoechoic nodule, which is ta ller than wide, with ill-defined margins, without echogenic foci. Prior size: 3.0 x 2.7 x 2.7 cm 2. 1.2 X 1.2 x 1.3 cm, mid lateral, mixed cystic and solid, hypoechoic nodule, which is taller than wide, with ill-defined margins, without echogenic foci. Prior size: 1.5 x 1.3 x 1.2 cm 3. 0.9 X 0.9 x 0.8 cm, upper lateral, mixed cystic and solid, hypoechoic nodule, which is wider peter n tall, with ill-defined margins, without echogenic foci. Prior size: 0.9 x 0.7 x 0.5 cm LEFT: # of nodules measured on left: 3 1. 1.9 X 1.8 x 1.8 cm, upper, mixed cystic and solid, hypoechoic nodule, which is wide as is tall, with ill-defined margins, without echogenic foci. Prior size: 2.9 x 2.0 x 1.9 cm 2. 1.1 X 1.2 x 1.1 cm, mid lateral, mixed cystic and solid, very hypoechoic nodule, which is wider than tall, with ill-defined margins, without echogenic foci. Prior size: 1.4 x 1.2 x 1.0 cm 3. 1.6 X 1.3 x 1.5 cm, lower medial, mixed cystic and solid, hypoechoic nodule, which is taller peter n wide, with ill-defined margins, without echogenic foci. Prior size: 1.6 x 1.4 x 1.4 cm ISTHMUS: # of nodules measured in the isthmus: 0 Bilateral neck scanned: no evidence of lymphadenopathy. IMPRESSION: Stable nonspecific thyroid nodularity.
== END | disposition home or self-care (01) ==
LOC: RADUSWWP 14:17
PROVIDERS: ATTEND Otolaryngology
DX: E04.2 Nontoxic multinodular goiter (principal)
CPT/HCPCS: 76536

== ENCOUNTER 2021-06-08 12:10 | Day surgery (SDC) | payer MEDICARE ==
[2021-06-08 13:15] VITALS: RESP 18; TEMP 97.8
[2021-06-08 13:27] LABS: Glucose,Whole Blood 106 mg/dL (75-99)
[2021-06-08 15:04] VITALS: BP 151/75; PULSE 64
--- NOTE | 2021-06-08 15:57 | US ---
ULTRASOUND GUIDED FNA THYROID BIOPSY: CLINICAL HISTORY: Request for 3 left-sided thyroid nodules for FNA FINDINGS: The procedure was explained to the patient. The risks, complications, benefits and alternatives were discussed and any questions were answered. Informed consent was obtained. Patient was placed supin e on the ultrasound table and prepped and draped in the usual sterile fashion. Utilizing a 25 gauge needle, five passes were made into the requested 3 left-sided thyroid nodules. Patient was stable throughout the procedure. Pathology is pending. All elements of maximal barrier technique were utilized. IMPRESSION: 1. Successful ultrasound guided FNA thyroid biopsy.
== END 2021-06-08 14:55 | disposition home or self-care (01) ==
LOC: RADPROMAIN 12:10
PROVIDERS: ATTEND Otolaryngology
DX: E04.1 Nontoxic single thyroid nodule (principal)
CPT/HCPCS: 10005; 10006; 88173; 88305

== ENCOUNTER → 2021-12-28 | Outpatient (CLI) | payer MEDICARE ==
--- NOTE | 2021-12-28 14:36 | P.PN ---
Subjective Progress Note Date: 12/28/21 Principal diagnosis: A 71 yr old wheelchair bound female with a history of severe and chronic low back pain x 5 yrs secondary to lumbar degenerative disc diseases and lumbar spondylosis with facet arthropathy presents today for LBP and BLE pain. Pain level is 7/10 in intensity, intermittent, sharp, burning, throbbing and achy in character with radiation of pain down the LEs BL. Pain is provoked with walking, standing or other weight bearing activity. Pain is palliated with medications (Tylenol, Naproxen, Tramadol, Lidocaine cream), sitting, PT last in Mar 2021 and wants to restart due to falls d/t LE weakness, reclining and rest. Interventional pain procedures completed include R Lumbar sympathetic nerve block x 3 since 2019 Patient is currently on Tramadol, Tylenol OTC, Naproxen OTC, Lidocaine topical Patient denies any side effects of the medication(s), denies excessive drowsiness or sleepiness, denies suicidal ideation and reports that the current pain medication is helping to control the pain and improve activities of daily living. Patient denies any motor or sensory deficits. Patient denies any fever or night sweats, denies any change in the bowel movements or urination. Physical Examination: -Constitutional: Cooperative. Not in acute distress . -HEENT: Neck is supple. No lymphadenopathy. No thyromegaly. Normal thyroid size. Eyes: No ptosis , no icterus, no photophobia. ENT: No auditory deficits. Normal oropharynx. No Thrush. - Respiratory: Chest clear to auscultations bilaterally. No wheezing. No rhonchi. - Cardiovascular: Regular rate and rhythm. S1 / S2 , no S3 , no S4. - Gastrointestinal: Abdomen soft no tenderness. Bowel sounds positive in all four quadrants. No organomegaly. - Genitourinary: Deferred. - Neurologic: Cranial nerve II to XII intact. No focal neurological deficits . - Psychatric: Alert & oriented x 3. Matching mood & appropriate affect. Judgment and insight intact. - Lymphatic: No Lymphadenopathy. - Musculoskeletal: Cervical spine: Muscle bulk/ tone/ strength in the bilateral upper extremities normal Vertebral body tenderness to palpation over Facet loading test positive Thoracic spine Muscle bulk / tone/ strength in the bilateral paraspinal muscles normal Vertebral body tender to palpation over Facet loading test positive Lumbar spine: Motor bulk 5/5. Muscle tone 4/5. Muscle strength lower extremities , thigh and legs : 4/5 age appropriate Deep tendon reflexes : Normal Knee Jerk. Normal Ankle Jerk . Vertebral body tenderness to palpation over Lumbar Facet Loading Test positive Straight Leg Raise: positive at 30 degrees right side/ left side Gaenslen's Test positive Sacral spine : Severe tenderness over the Sacroiliac joint: right side / left side Range of motion: Flexion of the lumbar spine <60 degrees Range of motion: Extension of the lumbar spine <20 degrees Gaenslen's Test positive Leighton's Test positive Ashwini test: positive right side / left side Thigh Thrust Test Sacral Thrust Test Assessment and plan: Chronic low back pain secondary to lumbar degenerative disc disease , lumbar spondylosis with facet arthropathy without myelopathy Recommendation of R lumbar sympathetic nerve block. May need a series of injections, up to 2 within a 4 mo period, for optimal pain relief. Risks, benefits of procedure discussed and pt verbalized understanding. Admits to ASA 81mg daily use. Admits to a medical history of diabetes. Protocol for discontinuation/ continuation of medications ruth procedure discussed. All patient questions answered MAPS reviewed and it was appropriate. I have spent 31 minutes on patient care today. Dr Bhardwaj was available by phone for the evaluation of this patient. The time was used to review the medical records including relevant urine studies and Prescription history (MAPs), review of the available imaging, evaluation and examination of the patient, coordination of care with the medical staff and if applicable referring physicians, as well as creation of the medical record PQRS Measure Charge Sheet PQRS Narrative: Hx Alcohol Use (MH) Yes: SOCIAL Home Medications: Ambulatory Orders Alendronate Sodium 70 mg PO Q7D 03/28/20 Amitriptyline HCl 50 mg PO BID 03/28/20 Aspirin [Adult Low Dose Aspirin EC] 81 mg PO DAILY 03/28/20 Atorvastatin [Lipitor] 20 mg PO HS 03/28/20 Cholecalciferol [Vitamin D3 (25 Mcg = 1000 Iu)] 2,000 unit PO DAILY 03/28/20 Enalapril Maleate [Vasotec] 20 mg PO DAILY 03/28/20 Furosemide [Lasix] 40 mg PO DAILY 03/28/20 Loratadine 10 mg PO DAILY 03/28/20 Metoprolol Succinate (ER) [Toprol XL] 100 mg PO DAILY 03/28/20 Multivitamin/Iron/Folic Acid [Centrum Women Tablet] 1 each PO DAILY 03/28/20 Naproxen 500 mg PO TID PRN 03/28/20 Omeprazole [PriLOSEC] 40 mg PO DAILY 03/28/20 Pregabalin [Lyrica] 200 mg PO BID 03/28/20 buPROPion HCL [buPROPion HCL SR] 150 mg PO BID 03/28/20 glipiZIDE [Glucotrol] 2.5 mg PO DAILY 03/28/20 hydrALAZINE HCL [Apresoline] 75 mg PO BID 03/28/20 Diclofenac Sodium [Voltaren] 75 mg PO BID 05/30/20 Isosorbide Mononitrate [Isosorbide Mononitrate ER] 30 mg PO DAILY 05/30/20 traMADol HCL [Ultram] 50 mg PO TID PRN 05/30/20 Budesonide-Formot 160-4.5 Mcg [Symbicort 160-4.5 Mcg Inhaler] 2 puff INHALATION BID 10/11/20 Fluorouracil [Efudex] 1 applic VAGINAL SA 10/11/20 Ipratropium Nebulized [Atrovent Nebulized 0.2 MG/ML] 0.5 mg INHALATION Q6HR 10/11/20
[2021-12-28 14:52] VITALS: BP 113/66; PULSE 53; RESP 18; TEMP 98.1
== END ==
LOC: PNWHC3 13:04
PROVIDERS: ATTEND Specialist
DX: M51.36 Other intervertebral disc degeneration, lumbar region (principal); M47.816 Spondylosis without myelopathy or radiculopathy, lumbar region; G89.29 Other chronic pain; E11.9 Type 2 diabetes mellitus without complications; Z79.84 Long term (current) use of oral hypoglycemic drugs; Z91.030 Bee allergy status; Z88.0 Allergy status to penicillin; Z88.2 Allergy status to sulfonamides
CPT/HCPCS: 99211

== ENCOUNTER 2022-02-01 07:03 | Day surgery (SDC) | payer MEDICARE ==
[2022-01-30 12:12] VITALS: BMI 44.6
[2022-02-01 07:25] VITALS: TEMP 96.9
[2022-02-01 07:38] LABS: Glucose,Whole Blood 112 mg/dL (70-110)
[2022-02-01] MEDS ORDERED: LACTATED RINGERS 1,000 ML IV ONE (07:39)
[2022-02-01] MEDS ORDERED: MIDAZOLAM 2 MG/2 ML VIAL ONE (07:41)
[2022-02-01] MEDS ORDERED: fentaNYL (PF) 50 MCG/ML 2 ML AMP ONE (07:41)
[2022-02-01] MEDS ORDERED: IOPAMIDOL M200 10 ML VIAL ONE (07:41)
[2022-02-01] MEDS ORDERED: LIDOCAINE 2% INJ 20 MG/ML (2 ML VIAL) ONE (07:41)
[2022-02-01] MEDS ORDERED: methylPREDNISolone ACETATE 40 MG/ML 1 ML VIAL ONE (07:41)
[2022-02-01] MEDS ORDERED: ROPIVACAINE 5 MG/ML 20 ML AMPULE ONE (07:41)
[2022-02-01] MEDS ORDERED: LACTATED RINGERS 1,000 ML IV SCH (07:45)
[2022-02-01] MEDS ORDERED: IV FLUID CONTINUATION 1,000 ML IV ONE ×2 (08:21)
[2022-02-01 08:32] VITALS: RESP 16
[2022-02-01 08:35] VITALS: BP 146/65; PULSE 67
--- NOTE | 2022-02-01 08:59 | P.PCN ---
Date of Procedure: 02/01/22 Description of Procedure: PREOPERATIVE DIAGNOSIS: Lumbar postlaminectomy syndrome, right foot pain, and right-sided CRPSNOS, right foot drop POSTOPERATIVE DIAGNOSIS: Lumbar postlaminectomy syndrome, right foot pain, and right-sided CRPSNOS, right foot drop PROCEDURE: Right side lumbar sympathetic block with fluoroscopic guidence ANESTHESIA: Local with 1% lidocaine; IV sedation with Versed and fentanyl. EBL: None. PROCEDURE INDICATION: The patient with lumbar postlaminectomy syndrome, CRPSNOS , had a previous lumbar sympathic block with good pain relief came here for, lumbar sympathetic block. The previous one lasted more than 2 months month. PROCEDURE DESCRIPTION: The patient was seen and identified in the preoperative area. Risks, benefits, complications, and alternatives were discussed with the patient. The patient agreed to proceed with the procedure and signed the consent. IV was started, and vital signs were stable. Patient was taken to the operating room and time out was completed. The patient was placed in the prone position on procedure table and a pillow was placed under the abdomen to reduce lumbar lordosis. The lumbosacral area was prepped and draped in the usual sterile fashion. Critical pause was taken. Vital signs were closely monitored during the procedure. Fluoroscopy was used to identify the L3 vertebra and target points were marked.5 cc Lidocaine 1% was used with a 25 guage needle to achieve adequate local anesthesia of the skin and subcutaneous tissue. Two 22-guage,7-inch spinal needles were inserted through the skin at the lateral border of the right side of L3 vertebral body and then advanced under fluoroscopic guidance in oblique, anterior, and lateral views. The needles were advanced to the octavio-lateral border of the vertebra and 3cc of Omnipaque 300 was injected to confirm needle position. After satisfactory positioning of the needles, and negative aspiration of blood, CSF 12 cc of 0.5 % preservative free ropivacaine with 40 mg Depo- Medrol was injected with intermittent aspiration. [place] were withdrawn intact. COMPLICATIONS: None. COMMENTS: DISPOSITION / PLANS: The patient was placed in a supine position and transferred to the recovery area in a stable condition for observation and was discharged from the recovery room after meeting discharge criteria. Home discharge instructions given to the patient by the staff. The patient was reexamined prior to discharge. The patient will schedule a follow up in the clinic . Per patient her pain in her right lower extremity improved in the recovery combine 2 preop. No noticeable weakness in her right lower extremity before discharge. Patient was given discharge instructions, including worsening back pain, lower extremity weakness, fever recommended to come to [facility] ER immediately. Patient, and family clearly understood.
--- NOTE | 2022-02-01 09:41 | FL ---
Fluoroscopy History: SYMPATHETIC NERVE BLOCK Sympathetic nerve block. FL time 30 secs. 5 images sent to PACS.
== END 2022-02-01 08:55 | disposition home or self-care (01) ==
LOC: ORPAIN 07:03
DX: M96.1 Postlaminectomy syndrome, not elsewhere classified (principal); M79.671 Pain in right foot; M21.371 Foot drop, right foot; I10 Essential (primary) hypertension; M79.7 Fibromyalgia; K21.9 Gastro-esophageal reflux disease without esophagitis; Z99.81 Dependence on supplemental oxygen; Z96.651 Presence of right artificial knee joint; Z98.890 Other specified postprocedural states; Z88.0 Allergy status to penicillin; Z91.030 Bee allergy status
CPT/HCPCS: 64520; J2250; J1030; J3010; Q9966; J2795; J2001; 99152; 99153

== ENCOUNTER → 2022-02-28 | Outpatient (CLI) | payer MEDICARE ==
[2022-02-28 11:04] VITALS: BP 114/61; PULSE 58; RESP 15; TEMP 98.2
--- NOTE | 2022-02-28 13:34 | P.PAINPG ---
PQRS Measure Charge Sheet Comment: A 71 yr old female with a history of severe and chronic low back pain secondary to lumbar degenerative disc diseases and lumbar spondylosis with facet arthropathy presents today for evaluation s/p R lumbar sympathetic block. Pt states she experienced 75% pain relief x 4 weeks s/p procedure. Pain level is currently at 1/10 in intensity but escalates as high as 9/10 in intensity by evening or w standing for periods of 20 min or more. Pain is constant, deep & burning in character w radiation towards the RLE. Pain is alleviated with medicatinos (Tramadol, Naproxen), lidocaine topical, injections, heat, PT in 2019 which provided no relief, home stretching regimen, use of a wheelchair for ambulation, massage chair use, repositioning and rest. Interventional pain procedures completed include R Lumbar Sympathetic Block, Patient is currently on Tramadol, Naproxen. Patient denies any side effects of the medication(s), denies excessive drowsiness or sleepiness, denies suicidal ideation and reports that the current pain medication is helping to control the pain and improve activities of daily living. Patient denies any motor or sensory deficits. Patient denies any fever or night sweats, denies any change in the bowel movements or urination. Physical Examination: -Constitutional: Cooperative. Not in acute distress . - Neurologic: Cranial nerve II to XII intact. No focal neurological deficits. - Psychatric: Alert & oriented x 3. Matching mood & appropriate affect. Judgment and insight intact. - Musculoskeletal: Cervical spine: Muscle bulk/ tone/ strength in the bilateral upper extremities normal Vertebral body tenderness to palpation over Sp[place]ling test positive Distraction test positive Facet loading test positive Thoracic spine Muscle bulk / tone/ strength in the bilateral paraspinal muscles normal Vertebral body tender to palpation over Facet loading test positive Lumbar spine: Motor bulk/ tone/ strength lower extremities , thigh and legs : 5/5 Deep tendon reflexes : Normal Knee Jerk. Normal Ankle Jerk . Vertebral body tenderness to palpation over Lumbar Facet Loading Test positive on the R Straight Leg Raise: positive at 30 degrees right side/ left side Gaenslen's Test positive Sacral spine : Severe tenderness over the Sacroiliac joint: right side / left side Range of motion: Flexion of the lumbar spine <60 degrees Range of motion: Extension of the lumbar spine <20 degrees Gaenslen's Test positive Leighton's Test positive Ashwini test: positive right side / left side Thigh Thrust Test Sacral Thrust Test Assessment and plan: Chronic low back pain secondary to lumbar degenerative disc disease , lumbar spondylosis with facet arthropathy without myelopathy Pt exhibited sufficient and optimal pain relief with the prior procedure. She will continue home pain mgmt modifying remedies and may return to our clinic in the future on an as- needed basis. Risks, benefits of procedure discussed and pt verbalized understanding. Denies anticoagulant use or medical history of diabetes. All patient questions answered MAPS reviewed and it was appropriate. I have spent less than 30 minutes on patient care today. Dr Bhardwaj was available by phone for the evaluation of this patient. The time was used to review the medical records including relevant urine studies and Prescription history (MAPs), review of the available imaging, evaluation and examination of the patient, coordination of care with the medical staff and if applicable referring physicians, as well as creation of the medical record PQRS Narrative: Hx Alcohol Use (MH) Yes: SOCIAL Home Medications: Ambulatory Orders Alendronate Sodium 70 mg PO GALVEZ 03/28/20 Amitriptyline HCl 50 mg PO BID 03/28/20 Aspirin [Adult Low Dose Aspirin EC] 81 mg PO DAILY 03/28/20 Atorvastatin [Lipitor] 20 mg PO HS 03/28/20 Cholecalciferol [Vitamin D3 (25 Mcg = 1000 Iu)] 2,000 unit PO DAILY 03/28/20 Enalapril Maleate [Vasotec] 20 mg PO DAILY 03/28/20 Furosemide [Lasix] 40 mg PO DAILY 03/28/20 Loratadine 10 mg PO DAILY 03/28/20 Metoprolol Succinate (ER) [Toprol XL] 100 mg PO DAILY 03/28/20 Multivitamin/Iron/Folic Acid [Centrum Women Tablet] 1 each PO DAILY 03/28/20 Omeprazole [PriLOSEC] 40 mg PO DAILY 03/28/20 Pregabalin [Lyrica] 200 mg PO BID 03/28/20 buPROPion HCL [buPROPion HCL SR] 150 mg PO BID 03/28/20 glipiZIDE [Glucotrol] 2.5 mg PO DAILY 03/28/20 hydrALAZINE HCL [Apresoline] 75 mg PO BID 03/28/20 Diclofenac Sodium [Voltaren] 75 mg PO BID PRN 05/30/20 Isosorbide Mononitrate [Isosorbide Mononitrate ER] 30 mg PO DAILY 05/30/20 traMADol HCL [Ultram] 50 mg PO TID PRN 05/30/20 Ipratropium Nebulized [Atrovent Nebulized 0.2 MG/ML] 0.5 mg INHALATION Q6HR PRN 10/11/20 Controlled Substance Measures - Controlled Substance Measures Is patient prescribed a controlled substance at discharge?: No
== END ==
LOC: PNWHC3 09:36
PROVIDERS: ATTEND Specialist
DX: M51.36 Other intervertebral disc degeneration, lumbar region (principal); M47.816 Spondylosis without myelopathy or radiculopathy, lumbar region; G89.29 Other chronic pain; Z88.0 Allergy status to penicillin; Z88.2 Allergy status to sulfonamides; Z91.030 Bee allergy status
CPT/HCPCS: 99211

== ENCOUNTER → 2022-04-23 | Outpatient (CLI) | payer MEDICARE ==
--- NOTE | 2022-04-23 16:28 | US ---
EXAMINATION TYPE: US thyroid st tissue head/neck DATE OF EXAM: 04/23/2022 COMPARISON: 05/19/2021 CLINICAL HISTORY: 71-year-old female E04.1 THYROID NODULE. TECHNIQUE: Multiple sonographic images of the thyroid gland are obtained. FINDINGS: GLAND SIZE: Right Lobe: 5.4 x 2.9 x 2.5 cm Overall Parenchyma: heterogenous Left Lobe: 5.0 x 2.8 x 2.5 cm Overall Parenchyma: heterogeneous Isthmus Thickness: 0.5 cm NODULES RIGHT: # of nodules measured on right: 2 1. 2.5 X 1.9 x 2.3 cm, lower mid, solid or almost completely solid, TR 4 hypoechoic nodule, which i s wider than tall, with smooth margins, without echogenic foci. Prior size: 2.9 x 2.0 x 2.1 cm 2. 1.3 X 1.4 x 1.3 cm, mid, mixed cystic and solid, hypoechoic TR 4 nodule, which is as tall as it is wide, with smooth margins, without echogenic foci. Prior size: 1.2 x 1.2 x 1.3 cm LEFT: # of nodules measured on left: 3 1. 2.1 X 1.5 x 1.9 cm, upper mid, mixed cystic and solid, hypoechoic TR 4 nodule, which is wider th an tall, with smooth margins, without echogenic foci. Prior size: 1.9 x 1.8 x 1.8 cm 2. 1.4 X 1.1 x 1.3 cm, lower lateral, solid or almost completely solid, hypoechoic TR 4 nodule, wh ich is taller than wide, with smooth margins, without echogenic foci. Prior size: 1.6 x 1.3 x 1.5 cm 3. 1.3 X 0.9 x 1.2 cm, lower lateral, solid or almost completely solid, TR 4 hypoechoic nodule, whi ch is wider than tall, with smooth margins, without echogenic foci. Prior size: 1.1 x 1.2 x 1.1 cm ISTHMUS: # of nodules measured in the isthmus: 0 Bilateral neck scanned, no evidence of lymphadenopathy. IMPRESSION: 1. Multinodular goiter with multiple solid TR4 nodules. The dominant nodule on the right measures 2.5 cm, decreased from 2.9 cm. The second dominant nodule is stable to minimally increased at 1.4 x 1.3 cm (versus 1.3 x 1.2 cm, previously). 2. On the left, the dominant nodule measures 2.1 x 1.9 cm (minimally increased from 1.9 x 1.8 cm). A second dominant 1.3 x 1.2 cm nodule is also minimally increased from 1.2 x 1.1 cm, previously.
== END ==
LOC: RADUSWWP 11:00
PROVIDERS: ATTEND Otolaryngology
DX: E04.2 Nontoxic multinodular goiter (principal)
CPT/HCPCS: 76536